=== PATIENT | male | born 1985 | race Caucasian/White ===

== ENCOUNTER 2017-02-11 15:56 | Emergency (ER) | payer BC ==
[2017-02-11 16:02] VITALS: BP 131/69
[2017-02-11] MEDS ORDERED: Tetracaine 0.5% OPTH.SOL 4 ML* 1 DROP BTL LEFT EYE ONE (16:02)
[2017-02-11] MEDS ORDERED: Fluorescein Sodium TOPICAL* 1 MG TEST OPHTHALMIC ONE (16:02)
[2017-02-11] MEDS ORDERED: Eye Irrigation Solution 30 ML BOTTLE LEFT EYE ONE (16:03)
--- NOTE | 2017-02-11 16:31 | UC ---
Eye Complaint HPI - History of Current Complaint Chief Complaint: UCEye Stated Complaint: FB IN EYE Hx Obtained From: Patient Onset/Duration: Sudden Onset - This morning, Still Present Timing: Constant Severity Initially: Moderate Severity Currently: Moderate Location of Injury: Other - cornea FB from a ceiling installation Character: Sharp, Foreign Body Sensation Aggravating Factor(s): Blinking Alleviating Factor(s): Nothing Associated Signs And Symptoms: Positive: Negative Related History: Foreign Body - Risk Factors Penetrating Injury Risk Factor: Negative Globe Rupture Risk Factors: Negative Acute Glaucoma Risk Factors: Negative Optic Artery Occlusion Risk Factors: Negative - Allergies/Home Medications Allergies/Adverse Reactions: Allergies Allergy/AdvReac Type Severity Reaction Status Date / Time Amoxicillin Allergy Intermediate Hives Verified 02/11/17 16:06 PMH/Surg Hx/FS Hx/Imm Hx Previously Healthy: Yes - Surgical History Surgical History: None - Family History Known Family History: Negative: Cardiac Disease, Hypertension, Diabetes - Social History Occupation: Employed Full-time Lives: With Family Alcohol Use: Occasionally Substance Use Type: None Smoking Status (MU): Never Smoked Tobacco Have You Smoked in the Last Year: No Review of Systems Eyes: Eye Redness All Other Systems Reviewed And Are Negative: Yes Physical Exam Triage Information Reviewed: Yes Appearance: Well-Appearing, No Pain Distress, Well-Nourished Vital Signs: Initial Vital Signs Temp 98.2 F 02/11/17 15:57 Pulse 73 02/11/17 15:57 Resp 18 02/11/17 15:57 BP 131/69 02/11/17 15:57 Pulse Ox 100 02/11/17 15:57 Vital Signs Reviewed: Yes Eyes: Positive: Conjunctiva Inflamed - OS, Other: - embedded FB in the nasal left cornea. 2 GTT tetracaine applied. FB partially removed with 22g needle. Still some FB retained. Neck exam: Normal Respiratory Exam: Normal Cardiovascular Exam: Normal Musculoskeletal Exam: Normal Neurological Exam: Normal Psychological Exam: Normal Skin Exam: Normal Eye Complaint Course/Dx - Differential Dx/Diagnosis Differential Diagnosis/HQI/PQRI: Conjunctivitis, Foreign Body, Penetrating Injury Provider Diagnoses: Foreign body left cornea, incompletely removed. Discharge - Discharge Plan Condition: Stable Disposition: HOME Prescriptions: Erythromycin (Ophth) [Ilotycin] 0.25 inch LEFT EYE TID #3.5 gm Patient Education Materials: Eye Foreign Body (ED), Erythromycin (Into the eye) Referrals: No Primary Care Phys,NOPCP [Primary Care Provider] - Rosalio Reyes MD [Medical Doctor] - 2 Days (First thing monday.) Additional Instructions: EYE OINTMENT USE: Wash hands. Place 1/4" strip across tip of finger. Pull lower lid down with the index finger and stabilize the ointment finger with the middle finger and scrape the ointment off on the lid. Pull the lid out and let go as you look down.
== END 2017-02-11 16:56 | disposition home or self-care (01) ==
LOC: UCEAST 15:56
DX: T15.02XA Foreign body in cornea, left eye, initial encounter (principal); S00.252A Superficial foreign body of left eyelid and periocular area, initial encounter; X58.XXXA Exposure to other specified factors, initial encounter; Y93.89 Activity, other specified; Y92.9 Unspecified place or not applicable; Y99.9 Unspecified external cause status
CPT/HCPCS: 99212; A9270-GY; G0463

== ENCOUNTER 2019-08-30 17:33 | Emergency (ER) | payer BC ==
[2019-08-30 17:42] VITALS: BP 143/88
--- NOTE | 2019-08-30 18:08 | UC ---
Shoulder Pain HPI - HPI Summary HPI Summary: 33 yo male presents with LEFT shoulder pain. 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 On 08/26 he woke with left shoulder pain and stiffness. Worked that day and pain and stiffness improved, but when he came home and rested the shoulder became stiff and painful again. This has been happening since 08/26. Pain is worse with overhead raising and shoulder external rotation. Denies specific injury, numbness, or tingling. Has been taking ibuprofen with mild relief. - History of Current Complaint Chief Complaint: UCUpperExtremity Stated Complaint: SHOULDER PAIN Time Seen by Provider: 08/30/19 18:07 Hx Obtained From: Patient Onset/Duration: Sudden Onset Severity Initially: Mild Severity Currently: Mild Pain Intensity: 4 Pain Scale Used: 0-10 Numeric - Allergies/Home Medications Allergies/Adverse Reactions: Allergies Allergy/AdvReac Type Severity Reaction Status Date / Time amoxicillin Allergy Intermediate Hives Verified 08/30/19 17:42 PMH/Surg Hx/FS Hx/Imm Hx - Additional Past Medical History Additional PMH: None - Surgical History Surgical History: None - Family History Known Family History: Negative: Cardiac Disease, Hypertension, Diabetes - Social History Lives: With Family Alcohol Use: Occasionally Substance Use Type: None Smoking Status (MU): Never Smoked Tobacco Have You Smoked in the Last Year: No Review of Systems All Other Systems Reviewed And Are Negative: No Constitutional: Positive: Negative Skin: Positive: Negative Respiratory: Positive: Negative Cardiovascular: Positive: Negative Neurovascular: Positive: Negative Musculoskeletal: Positive: Other: - Left shoulder pain Neurological: Positive: Negative Psychological: Positive: Negative Physical Exam - Summary Physical Exam Summary: GENERAL: NAD. WDWN. No pain distress. SKIN: No rashes, sores, lesions, or open wounds. CHEST: No accessory muscle use. Breathing comfortably and in no distress. CV: Pulses intact radial and ulnar. Cap refill <2seconds MSK: Mild TTP about insertion of supraspinatus. Pain reproduced with external rotation and positive o chrissy test. 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 NEURO: Alert. Sensations intact C4-T1 b/l . PSYCH: Age appropriate behavior. Triage Information Reviewed: Yes Vital Signs: Initial Vital Signs Temp 98.5 F 08/30/19 17:39 Pulse 65 08/30/19 17:39 Resp 14 08/30/19 17:39 BP 143/88 08/30/19 17:39 Pulse Ox 100 08/30/19 17:39 Vital Signs Reviewed: Yes Shoulder Course/Dx - Course Course Of Treatment: Pt declined XRs at this time. Suspect RTC tendinitis. Advised to continue rest, ice/heat, and will rx for naproxen and PT. F/u with Ortho if symptoms do not improve. Limit heavy overhead lifting. - Differential Dx/Diagnosis Provider Diagnosis: Rotator cuff tendinitis Discharge ED - Sign-Out/Discharge Documenting (check all that apply): Patient Departure All imaging exams completed and their final reports reviewed: No Studies - Discharge Plan Condition: Stable Disposition: HOME Prescriptions: Naproxen [Naproxen 500 mg tab] 500 mg PO BID PRN #30 tablet PRN Reason: Pain - Mild Patient Education Materials: Rotator Cuff Tendinitis (ED), Exercises for Internal and External Shoulder Rotation (ED), Exercises for Shoulder Abduction and Adduction (ED) Referrals: No Primary Care Phys,NOPCP [Primary Care Provider] - Patel Bynum MD [Medical Doctor] - If Needed Additional Instructions: If you develop a fever, shortness of breath, chest pain, new or worsening symptoms - please call your PCP or go to the ED immediately. Your blood pressure was high at todays visit. Please see your primary provider within 4 weeks for recheck and re-evaluation. Rest and apply ice/heat to your shoulder Practice gentle range of motion exercises to keep the shoulder muscles loose I recommend that you begin physical therapy for further treatment. Avoid heavy overhead lifting If your symptoms do not improve within 1 week - please call Orthopedics at the number below to schedule an appointment for further evaluation - Billing Disposition and Condition Condition: STABLE Disposition: Home - Attestation Statements Provider Attestation: Per institutional requirements, I have reviewed the chart, however, I was not consulted specifically or made aware of this patient by the midlevel provider. I did not personally evaluate, interact with , or disposition this patient.
== END 2019-08-30 18:53 | disposition home or self-care (01) ==
LOC: UCEAST 17:33
DX: M75.82 Other shoulder lesions, left shoulder (principal); Z88.0 Allergy status to penicillin
CPT/HCPCS: 99212; G0463